=== PATIENT | male | born 1985 | race Caucasian/White ===

== ENCOUNTER 2019-09-25 04:10 | Emergency (ER) | payer SELFPAY ==
[2019-09-25] MEDS ORDERED: LIDOCAINE 1%/EPI 1:100000 (20 ML MULTI DOSE VIAL) ONE (04:19)
[2019-09-25] MEDS ORDERED: SODIUM CHLORIDE 0.9% 500 ML INFUS.BAG IV ONE ×3 (04:30→11:49)
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
[2019-09-25 04:43] LABS: BASO % 0.3 % (0-2.0); EOS % 0.6 % (0-4.5); HEMATOCRIT 42.3 % (35.4-49); HEMOGLOBIN 14.3 GM/dL (11.7-16.9); LYMPH % 7.1 % (8-40); MCH 31.7 pg (25.7-33.7); MCHC 33.7 g/dl (32.0-35.9); MEAN CELL VOLUME 93.9 fl (80-96); MEAN PLT VOLUME 8.8 fl (7.5-11.1); MONO % 6.2 % (3.8-10.2); NEUT % 85.8 % (42.8-82.8); PLATELET COUNT 186 K/MM3 (134-434); RBC 4.51 M/mm3 (4.00-5.60); RDW 13.2 % (11.9-15.9); WHITE BLOOD COUNT 11.5 K/mm3 (4.0-10.0)
[2019-09-25 05:05] VITALS: BMI 26.8
[2019-09-25] MEDS ORDERED: DIPHTH,PERTUSS(ACELL),TET 0.5 ML DISP.SYRIN IM ONE ×2 (06:11→06:22)
[2019-09-25 07:29] LABS: ALBUMIN 4.1 g/dl (3.4-5.0); ALK PHOS 54 U/L (45-117); ANION GAP 9 MMOL/L (8-16); BILIRUBIN,TOTAL 0.6 mg/dL (0.2-1); BLOOD UREA NITROGEN 7.7 mg/dL (7-18); CALCIUM 8.4 mg/dL (8.5-10.1); CHLORIDE 106 mmol/L (98-107); CO2 25 mmol/L (21-32); GLUCOSE,RANDOM 133 mg/dL (74-106); POTASSIUM 3.5 mmol/L (3.5-5.1); SGOT/AST 311 U/L (15-37); SGPT/ALT 200 U/L (13-61); SODIUM 140 mmol/L (136-145); TOT PROT 7.4 g/dl (6.4-8.2)
--- NOTE | 2019-09-25 07:56 | PDOC ---
*Physical Exam - Vital Signs Last Vital Signs Temp Pulse Resp BP Pulse Ox 98.1 F 111 H 20 150/98 98 09/25/19 04:10 09/25/19 04:10 09/25/19 04:10 09/25/19 04:10 09/25/19 04:10 ED Treatment Course - LABORATORY CBC & Chemistry Diagram: 09/25/19 04:28 09/25/19 04:28 - ADDITIONAL ORDERS Additional order review: Laboratory Results 09/25/19 04:28 Sodium 140 Potassium 3.5 Chloride 106 Carbon Dioxide 25 Anion Gap 9 BUN 7.7 Creatinine 1.0 Est GFR (CKD-EPI)AfAm 114.91 Est GFR (CKD-EPI)NonAf 99.15 Random Glucose 133 H Calcium 8.4 L Total Bilirubin 0.6 AST 311 H ALT 200 H Alkaline Phosphatase 54 Total Protein 7.4 Albumin 4.1 Alcohol, Quantitative < 3 09/25/19 04:28 RBC 4.51 MCV 93.9 MCHC 33.7 RDW 13.2 MPV 8.8 Neutrophils % 85.8 H Lymphocytes % 7.1 L D Monocytes % 6.2 Eosinophils % 0.6 Basophils % 0.3 - Medications Given in the ED: ED Medications Discontinued Medications Generic Name Dose Route Start Last Admin Trade Name Freq PRN Reason Stop Dose Admin Diphtheria/Tetanus/Acell Pertussis 0.5 ml 09/25/19 06:11 09/25/19 06:57 Boostrix - IM 09/25/19 06:12 0.5 ml .ONCE ONE Administration Sodium Chloride 1,000 ml 09/25/19 04:30 09/25/19 05:08 Normal Saline - IV 09/25/19 04:31 1,000 ml ONCE ONE Administration Medical Decision Making - Medical Decision Making 09/25/19 07:10 - Sign-out received from Dr. Gage - F/u labs, reassess 09/25/19 07:45 - Patient has elevated AST / ALT higher than prior, non-tender abdomen on my assessment - Reports history of "the least bad hepatitis" history of alcohol use, "not much anymore" - Alcohol < 3 09/25/19 07:59 - Patient still seems altered 09/25/19 08:35 - Vitals repeated, tachycardia has resolved, patient stable 09/25/19 12:29 - Still no urine, additional IVF given - Toradol given 09/25/19 13:40 - Acute calcaneal fracture - Given GI and Ortho follow-up - Mother arrived in department, states that patient is at his baseline MSE. 09/25/19 14:15 - Spoke with Dr. Bush, recommended LLE CT, f/u Podiatry, CT foot, bulky web- roll dressing and crutches. 09/25/19 14:41 - Spoke with Dr. Araya, will follow patient as outpatient. Referral given. 09/25/19 15:38 - CT with comminuted fracture not involving the joint space, no change in management plan per Dr. Araya. - Dressing placed, patient instructed and shown how to use crutches, ambulated down the hallway in the department. Dispo: Home Discharge - Discharge Information Problems reviewed: Yes Clinical Impression/Diagnosis: Cannabis dependence, uncomplicated, Liver function test abnormality, Cocaine abuse, Benzodiazepine abuse Head trauma Qualifiers: Encounter type: initial encounter Qualified Code(s): S09.90XA - Unspecified injury of head, initial encounter Concussion Qualifiers: Encounter type: initial encounter Loss of consciousness presence/duration: without LOC Qualified Code(s): S06.0X0A - Concussion without loss of consciousness, initial encounter Scalp laceration Qualifiers: Encounter type: initial encounter Qualified Code(s): S01.01XA - Laceration without foreign body of scalp, initial encounter Calcaneal fracture Qualifiers: Encounter type: initial encounter Calcaneus location: unspecified portion of calcaneus Fracture type: closed Fracture alignment: nondisplaced Laterality: left Qualified Code(s): S92.002A - Unspecified fracture of left calcaneus, initial encounter for closed fracture Condition: Improved Disposition: HOME - Admission No - Follow up/Referral Referrals: Wayne Sher DO [Staff Physician] - Frank Bush MD [Staff Physician] - Gege Araya DPM [Staff Physician] - - Patient Discharge Instructions Patient Printed Discharge Instructions: DI for Laceration Repair -- Nate, DI for Closed Head Injury Additional Instructions: Return for severe confusion, vomiting, change to mental status or any concerns. You were given nate in your scalp . They will need to be removed in 7 - 10 days. You need to follow up with your primary doctor. No sports or activities where you could re-injure your head until you are without headache for one week. Your CT scan of your abdomen shows fatty liver . This is something that needs to be follow up with a nanotechnology engineering technician. See referal for Dr Mckeon (GI) and call to schedule. You should avoid high carbohydrates and avoid alcohol completely as this can contribute to future cirrhosis of the liver. You were also given a tetanus shot today. You were found to have a fracture in your left food. Do not bear weight on your left foot. Please leave the provided dressing on your foot until you follow up with the provided orthopaedic surgeon (Dr. Bush) or Podiatry (Dr. Araya) within the next week. - Post Discharge Activity
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
[2019-09-25] MEDS ORDERED: KETOROLAC TROMETHAMINE 15 MG/ML VIAL IVPUSH ONE (11:49)
[2019-09-25] MEDS ORDERED: KETOROLAC TROMETHAMINE 30 MG/1 ML VIAL ONE (11:54)
[2019-09-25 13:18] LABS: METHADONE, UR NEGATIVE ng/ml (CUTOFF=300); OPIATES, URI NEGATIVE ng/ml (CUTOFF=300); PHENCYCLIDINE,URINE NEGATIVE ng/ml (CUTOFF=25); URINE AMPHETAMINES NEGATIVE ng/ml (CUTOFF=500); URINE BARBITURATES NEGATIVE ng/ml (CUTOFF=200)
[2019-09-25 13:19] LABS: COCAINE, UR POSITIVE ng/ml (CUTOFF=300); URINE BENZODIAZEPINES POSITIVE ng/ml (CUTOFF=200)
[2019-09-25 13:43] VITALS: TEMP 98.6
[2019-09-25 16:20] VITALS: BP 142/80; PULSE 87
== END 2019-09-25 16:21 | disposition home or self-care (01) ==
LOC: JER 04:10
PROC: 3E0333Z Introduction of Anti-inflammatory into Peripheral Vein, Percutaneous Approach (ICD-10-PCS; principal; 2019-09-25)
PROC: 3E0234Z Introduction of Serum, Toxoid and Vaccine into Muscle, Percutaneous Approach (ICD-10-PCS; 2019-09-25)
PROC: 0HQ0XZZ Repair Scalp Skin, External Approach (ICD-10-PCS; 2019-09-25)
DX: S06.0X0A Concussion without loss of consciousness, initial encounter (principal); S01.01XA Laceration without foreign body of scalp, initial encounter; S92.002A Unspecified fracture of left calcaneus, initial encounter for closed fracture; F10.120 Alcohol abuse with intoxication, uncomplicated; F12.10 Cannabis abuse, uncomplicated; F14.10 Cocaine abuse, uncomplicated; F13.10 Sedative, hypnotic or anxiolytic abuse, uncomplicated; Y00.XXXA Assault by blunt object, initial encounter; Y93.89 Activity, other specified; Y92.038 Other place in apartment as the place of occurrence of the external cause; Y99.8 Other external cause status
CPT/HCPCS: 36415; 70450-TC; 72125-TC; 73610-TC-LT-FY; 73630-TC-LT; 73700-TC-RT; 74177-TC; 80053; 80307; 85025; 90715; 99285-25; Q9967